=== PATIENT | female | born 1995 | race Caucasian/White ===

== ENCOUNTER 2017-05-03 00:06 | Emergency (ER) | payer BC, MEDICAID ==
[~2017-05-03] VITALS: Ht 162.6 cm; Wt 72.6 kg
[2017-05-03 00:29] VITALS: BP 134/74
== END 2017-05-03 01:01 | disposition home or self-care (01) ==
LOC: ER 00:08
DX: R11.2 Nausea with vomiting, unspecified (principal)
CPT/HCPCS: 99283; A4606; Z7610